=== PATIENT | male | born 1945 | race Caucasian/White ===

== ENCOUNTER 2019-11-26 13:52 | Emergency (ER) | payer MEDICARE, OTHER ==
--- NOTE | 2019-11-26 14:11 | EDM.PDOC ---
ED HPI GENERAL MEDICAL PROBLEM - General Chief Complaint: General Stated Complaint: WEAK Time Seen by Provider: 11/26/19 14:10 - History of Present Illness INITIAL COMMENTS - FREE TEXT/NARRATIVE: 74-year-old male presents the emergency room with weakness. Patient has had increased weakness over the last couple of weeks. 2 weeks ago he had 3 lesions in his liver biopsied. They appear to be metastatic lesions the primary is unknown he is scheduled for a colonoscopy tomorrow but the patient is too weak to go to this. The patient denies any pain at this time he is not having any breathing difficulties or shortness of breath no chest discomfort no abdominal discomfort. The patient has a drain and his liver that is putting out approximately 600 cc several times a day. - Related Data Allergies Allergy/AdvReac Type Severity Reaction Status Date / Time No Known Allergies Allergy Verified 11/26/19 14:08 Home Meds: Home Meds Albuterol [Proventil HFA] 1 puff INH Q4HR PRN 11/26/19 [History] Carbidopa/Levodopa [Carbidopa-Levodopa 25-100 Tab] 1 each PO TID 11/26/19 [History] Diclofenac Sodium [Voltaren] 1 tab PO BID PRN 11/26/19 [History] Flunisolide [Nasalide Nasal [place]] 1 spray RIK BID 11/26/19 [History] Latanoprost/Pf [Latanoprost 0.005% Eye Drop] 1 drop OP DAILY 11/26/19 [History] Rosuvastatin Calcium 20 mg PO DAILY 11/26/19 [History] Tamsulosin HCl 0.4 mg PO DAILY 11/26/19 [History] Venlafaxine HCl [Venlafaxine ER] 150 mg PO DAILY 11/26/19 [History] hydroCHLOROthiazide [Hydrochlorothiazide] 25 mg PO DAILY 11/26/19 [History] traZODone HCl [Trazodone HCl] 100 mg PO BEDTIME 11/26/19 [History] Social & Family History - Tobacco Use Smoking Status *Q: Never Smoker - Caffeine Use Caffeine Use: Reports: Coffee - Recreational Drug Use Recreational Drug Use: No ED ROS GENERAL - Review of Systems Review Of Systems: See Below Constitutional: Reports: Weakness, Fatigue. Denies: Fever, Chills HEENT: Reports: No Symptoms Respiratory: Reports: No Symptoms Cardiovascular: Reports: No Symptoms GI/Abdominal: Reports: Decreased Appetite. Denies: Abdominal Pain : Reports: Other (His urine has been dark otherwise no symptoms) Musculoskeletal: Reports: No Symptoms Skin: Reports: No Symptoms Neurological: Reports: No Symptoms Psychiatric: Reports: No Symptoms Hematologic/Lymphatic: Reports: No Symptoms ED EXAM, GENERAL - Physical Exam Exam: See Below Exam Limited By: No Limitations General Appearance: Alert, No Apparent Distress Head: Atraumatic, Normocephalic Neck: Normal Inspection, Supple, Non-Tender, Full Range of Motion Respiratory/Chest: No Respiratory Distress, Lungs Clear, Normal Breath Sounds Cardiovascular: Regular Rate, Rhythm, No Edema, No Murmur GI/Abdominal: Normal Bowel Sounds, Soft, Non-Tender, Other (He is obese he has a near full 600 cc bag attached to his liver drain) Course - Vital Signs Last Recorded V/S: Last Vital Signs Temp 35.5 C L 11/26/19 14:03 Pulse 100 11/26/19 14:03 Resp 16 11/26/19 14:03 BP 108/71 11/26/19 14:03 Pulse Ox 94 L 11/26/19 14:03 - Orders/Labs/Meds Orders: Active Orders 24 hr Category Date Time Status EKG 12 Lead [EKG Documentation Completion] [RC] ROUTINE Care 11/26/19 14:03 Active CORONAVIRUS COVID-19 PETEY [MOLEC] Routine Lab 11/26/19 17:16 Ordered Labs: Laboratory Tests 11/26/19 11/26/19 11/26/19 Range/Units 14:49 15:28 15:28 WBC 11.07 H (4.23-9.07) K/mm3 RBC 5.06 (4.63-6.08) M/mm3 Hgb 15.2 (13.7-17.5) gm/dl Hct 45.2 (40.1-51.0) % MCV 89.3 (79.0-92.2) fl MCH 30.0 (25.7-32.2) pg MCHC 33.6 (32.2-35.5) g/dl RDW Std Deviation 46.1 H (35.1-43.9) fL Plt Count 418 H (163-337) K/mm3 MPV 8.1 L (9.4-12.3) fl Neut % (Auto) 76.1 H (34.0-67.9) % Lymph % (Auto) 9.5 L (21.8-53.1) % [place] % (Auto) 11.4 (5.3-12.2) % Eos % (Auto) 0.2 L (0.8-7.0) Baso % (Auto) 0.5 (0.1-1.2) % Neut # (Auto) 8.42 H (1.78-5.38) K/mm3 Lymph # (Auto) 1.05 L (1.32-3.57) K/mm3 [place] # (Auto) 1.26 H (0.30-0.82) K/mm3 Eos # (Auto) 0.02 L (0.04-0.54) K/mm3 Baso # (Auto) 0.06 (0.01-0.08) K/mm3 Manual Slide Review Abnormal smear Sodium 135 L (136-145) mEq/L Potassium 3.6 (3.5-5.1) mEq/L Chloride 94 L (98-107) mEq/L Carbon Dioxide 26 (21-32) mEq/L Anion Gap 18.6 H (5-15) BUN 44 H (7-18) mg/dL Creatinine 2.0 H (0.7-1.3) mg/dL Est Cr Clr Drug Dosing 35.57 mL/min Estimated GFR (MDRD) 33 (>60) mL/min BUN/Creatinine Ratio 22.0 H (14-18) Glucose 170 H (83-115) mg/dL Calcium 10.1 (8.5-10.1) mg/dL Total Bilirubin 1.5 H (0.2-1.0) mg/dL Direct Bilirubin (0.0-0.2) mg/dl AST 47 H (15-37) U/L ALT 16 (16-63) U/L Alkaline Phosphatase 307 H (46-116) U/L Total Protein 8.3 H (6.4-8.2) g/dl Albumin 3.1 L (3.4-5.0) g/dl Globulin 5.2 gm/dL Albumin/Globulin Ratio 0.6 L (1-2) TSH 3rd Generation 5.526 H (0.358-3.74) uIU/mL Urine Color Yellow (Yellow) Urine Appearance Clear (Clear) Urine pH 5.5 (5.0-8.0) Ur Specific [place] > or = 1.030 (1.005-1.030) Urine Protein 2+ H (Negative) Urine Glucose (UA) Negative (Negative) Urine Ketones Negative (Negative) Urine Occult Blood Trace-lysed H (Negative) Urine Nitrite Negative (Negative) Urine Bilirubin 1+ H (Negative) Urine Urobilinogen 0.2 (0.2-1.0) Ur Leukocyte Esterase Negative (Negative) Urine RBC 5-10 H (0-5) /hpf Urine WBC 0-5 (0-5) /hpf Ur Squamous Epith Cells 0-5 (0-5) /hpf Urine Bacteria Moderate H (FEW) /hpf Urine Mucus Moderate H (FEW) /hpf 11/25/ Range/Units 15:28 WBC (4.23-9.07) K/mm3 RBC (4.63-6.08) M/mm3 Hgb (13.7-17.5) gm/dl Hct (40.1-51.0) % MCV (79.0-92.2) fl MCH (25.7-32.2) pg MCHC (32.2-35.5) g/dl RDW Std Deviation (35.1-43.9) fL Plt Count (163-337) K/mm3 MPV (9.4-12.3) fl Neut % (Auto) (34.0-67.9) % Lymph % (Auto) (21.8-53.1) % [place] % (Auto) (5.3-12.2) % Eos % (Auto) (0.8-7.0) Baso % (Auto) (0.1-1.2) % Neut # (Auto) (1.78-5.38) K/mm3 Lymph # (Auto) (1.32-3.57) K/mm3 [place] # (Auto) (0.30-0.82) K/mm3 Eos # (Auto) (0.04-0.54) K/mm3 Baso # (Auto) (0.01-0.08) K/mm3 Manual Slide Review Sodium (136-145) mEq/L Potassium (3.5-5.1) mEq/L Chloride (98-107) mEq/L Carbon Dioxide (21-32) mEq/L Anion Gap (5-15) BUN (7-18) mg/dL Creatinine (0.7-1.3) mg/dL Est Cr Clr Drug Dosing mL/min Estimated GFR (MDRD) (>60) mL/min BUN/Creatinine Ratio (14-18) Glucose (83-115) mg/dL Calcium (8.5-10.1) mg/dL Total Bilirubin (0.2-1.0) mg/dL Direct Bilirubin 1.10 H (0.0-0.2) mg/dl AST (15-37) U/L ALT (16-63) U/L Alkaline Phosphatase (46-116) U/L Total Protein (6.4-8.2) g/dl Albumin (3.4-5.0) g/dl Globulin gm/dL Albumin/Globulin Ratio (1-2) TSH 3rd Generation (0.358-3.74) uIU/mL Urine Color (Yellow) Urine Appearance (Clear) Urine pH (5.0-8.0) Ur Specific [place] (1.005-1.030) Urine Protein (Negative) Urine Glucose (UA) (Negative) Urine Ketones (Negative) Urine Occult Blood (Negative) Urine Nitrite (Negative) Urine Bilirubin (Negative) Urine Urobilinogen (0.2-1.0) Ur Leukocyte Esterase (Negative) Urine RBC (0-5) /hpf Urine WBC (0-5) /hpf Ur Squamous Epith Cells (0-5) /hpf Urine Bacteria (FEW) /hpf Urine Mucus (FEW) /hpf Meds: Medications Discontinued Medications Generic Name Dose Route Start Last Admin Trade Name Freq PRN Reason Stop Dose Admin Lactated Ringer's 1,000 mls @ 999 mls/hr 11/26/19 14:48 11/26/19 15:06 Ringers, Lactated IV 11/26/19 15:48 999 mls/hr .BOLUS ONE Administration Sodium Chloride 1,000 mls @ 999 mls/hr 11/26/19 16:22 11/26/19 16:50 Normal Saline IV 11/26/19 17:22 999 mls/hr ONETIME ONE Administration - Re-Assessments/Exams Free Text/Narrative Re-Assessment/Exam: 11/26/19 17:26 Case was discussed with Dr. Singh, interventional radiologist at [facility] in [place]. And he was very helpful explained to me that the patient did indeed have 3 liver biopsies done and he also had a common bile duct drain put in because his was occluded. At that time the drain was put in his bilirubin was 2.1 alk phos was 347. And his BUN was 22 creatinine 1.19 BUN and creatinine have significantly elevated since that time. 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 Given the patient's situation it is thought best to have him admitted at [facility] in [place]. Situation was discussed with Dr. Kennedy who kindly accepts the patient in transfer. Departure - Departure Time of Disposition: 17:09 Disposition: Admitted As Inpatient 66 Clinical Impression: Biliary obstruction due to cancer, Acute prerenal azotemia, Weakness - Discharge Information Referrals: Rock Chan Jr, MD [Primary Care Provider] - Forms: ED Department Discharge Sepsis Event Note (ED) - Evaluation Sepsis Screening Result: No Definite Risk - Focused Exam Vital Signs: Vital Signs Temp Pulse Resp BP Pulse Ox 11/26/19 14:03 35.5 C L 100 16 108/71 94 L - My Orders Last 24 Hours: My Active Orders 11/26/19 14:03 EKG 12 Lead [EKG Documentation Completion] [RC] ROUTINE 11/26/19 17:16 CORONAVIRUS COVID-19 PETEY [MOLEC] Routine - Assessment/Plan Last 24 Hours: My Active Orders 11/26/19 14:03 EKG 12 Lead [EKG Documentation Completion] [RC] ROUTINE 11/26/19 17:16 CORONAVIRUS COVID-19 PETEY [MOLEC] Routine
[2019-11-26] MEDS ORDERED: Lactated Ringers 1,000 ML IV ONE (14:48)
--- NOTE | 2019-11-26 15:18 | CR ---
Chest: 2 views of the chest were obtained. Comparison: No prior chest x-ray is available. Heart size and mediastinum are normal. Lungs are clear with no acute parenchymal change. Left shoulder prosthesis is seen. Scattered disc space narrowing is noted within the mid and lower thoracic spine. Impression: 1. Findings as noted above. 2. Nothing acute is seen on 2 view chest x-ray. Diagnostic code #2 This report was dictated in MDT
[2019-11-26] MEDS ORDERED: Sodium Chloride 0.9% 1,000 ML IV ONE ×2 (16:22→18:15)
[2019-11-26] MEDS ORDERED: Sodium Chloride 0.9% 1,000 ML ONE (18:19)
== END 2019-11-26 18:30 ==
LOC: JD.ED 13:52
DX: K83.1 Obstruction of bile duct (principal); C24.9 Malignant neoplasm of biliary tract, unspecified; R79.89 Other specified abnormal findings of blood chemistry; R53.1 Weakness; Z79.899 Other long term (current) drug therapy; Z20.828 Contact with and (suspected) exposure to other viral communicable diseases
CPT/HCPCS: 36415; 71046; 80053; 81001; 82248; 84443; 85025; 93005; 96360; 96361; 99285; J7030; J7120; U0002; 99284